=== PATIENT | male | born 1970 | race Asian ===

== ENCOUNTER 2019-01-04 07:35 | Emergency (ER) | payer BC ==
[~2019-01-04] VITALS: Ht 167.6 cm; Wt 73.9 kg
[2019-01-04 07:45] VITALS: Ht 167.6 cm; Wt 73.9 kg
[2019-01-04 08:32] LABS: BASOPHIL % 0.4 % (0-2); PLATELET COUNT 208 x10^3mcL (130-400); RED CELL DISTRIBUTION WIDTH 12.4 % (11.5-14.5)
[2019-01-04 08:43] LABS: CALCIUM 8.9 mg/dL (8.5-10.1); CARBON DIOXIDE 31.2 mmol/L (21-32); CHLORIDE SERUM 97 mmol/L (98-107); CREATININE SERUM 0.9 mg/dL (0.7-1.3); GFR1 > 60 mL/min; GLUCOSE SERUM 131 mg/dL (74-106); POTASSIUM SERUM 4.7 mmol/L (3.5-5.1); SODIUM SERUM 135 mmol/L (136-145)
[2019-01-04 08:46] LABS: ALBUMIN 3.8 g/dL (3.4-5.0); URIC ACID 5.2 mg/dL (3.5-7.2)
[2019-01-04 09:00] LABS: ALKALINE PHOSPHATASE 53 U/L (46-116); ALT/SGPT 28 U/L (16-63); AST/SGOT 13 U/L (15-37); BILIRUBIN TOTAL 0.9 mg/dL (0.20-1.00); CHOLESTEROL 159 mg/dL (<200); HDL CHOLESTEROL 45 mg/dL (40-60); PHOSPHOROUS 3.1 mg/dL (2.5-4.9); TOTAL PROTEIN, SERUM 7.4 g/dL (6.4-8.2)
[2019-01-04 09:08] VITALS: BP 113/77
== END 2019-01-04 10:14 | disposition home or self-care (01) ==
LOC: ED 07:35
PROVIDERS: Emergency Medicine
DX: F41.9 Anxiety disorder, unspecified (principal); G47.00 Insomnia, unspecified; I10 Essential (primary) hypertension; Z98.890 Other specified postprocedural states
CPT/HCPCS: 36415; Q0092